=== PATIENT | male | born 1950 | race Caucasian/White ===

== ENCOUNTER 2016-12-29 12:17 | Inpatient (IN) | payer OTHER ==
[~2016-12-29] VITALS: Ht 182.9 cm; Wt 112.9 kg
[2016-12-29 13:04] LABS: HEMATOCRIT 39.9 % (38.0-50.0); MCH 31.8 PG (29.0-34.0); MCHC 31.6 G/DL (30.0-36.0); MEAN PLAT.VOLUME 9.7 uM^3 (9.0-12.4); NRBC (%) 2.3 /100 WBC (0-0); PLATELET COUNT 228 K/uL (156-360); RBC DIS.WIDTH-CV 21.9 % (11.8-14.6); RBC DIS.WIDTH-SD 73.7 % (39-53); RED BLOOD COUNT 3.96 M/uL (4.00-5.50); WHITE BLOOD COUNT 12.3 K/uL (4.1-10.2)
[2016-12-29 13:05] LABS: MCV 100.8 FL (86-99)
[2016-12-29 13:19] LABS: CHLORIDE 98 mEq/L (99-109); POTASSIUM 4.2 mEq/L (3.7-5.4); SODIUM 140 mEq/L (136-147)
[2016-12-29 13:20] LABS: GLUCOSE 125 mg/dL (70-99)
[2016-12-29 13:22] LABS: ANION GAP 13 MEQ/L (2-14)
[2016-12-29 13:24] LABS: GFR ESTIMATE (CALCULATED) 20 mL/min/
[2016-12-29 13:28] LABS: TROP-I INTERPRETATION NEGATIVE; TROPONIN-I 0.06 ng/mL (0.0-0.30)
[2016-12-29 13:33] LABS: UREA NITROGEN (BUN) 73 mg/dL (9-23)
[2016-12-29 17:18] LABS: BASE EXCESS 0 mEq/L (-3 to +3); CARBOXY HGB 4.8 % (0-5); METHEMOGLOBIN 0.8 % (0-1.5); PCO2 94 mm Hg (35-45); PO2 78 mm Hg (80-100)
[2016-12-29 17:19] LABS: COMMENTS - BLOOD GASES A+C+; DEVICE NC; O2 FLOW 5 L/MIN; SITE LR; pH 7.14 (7.35-7.45)
[2016-12-29] MEDS ORDERED: SPIRIVA1 INHALATI IH (17:29)
[2016-12-29] MEDS ORDERED: RENAL-VITE TAB0.8 MG PO (17:30)
[2016-12-29] MEDS ORDERED: BREO ELLIPTA I1 EACH IH (17:30)
[2016-12-29] MEDS ORDERED: FUROSEMIDE40 MG PO (17:31)
[2016-12-29] MEDS ORDERED: ASPIR-LOW81 MG PO (17:32)
[2016-12-29] MEDS ORDERED: CALCITRIOL0.25 MCG PO (17:32)
[2016-12-29] MEDS ORDERED: ERGOCALCIF50000 UNIT PO (17:33)
[2016-12-29] MEDS ORDERED: LOSARTAN POTASS50 MG PO (17:34)
[2016-12-29] MEDS ORDERED: DILTIAZEM 24HR120 MG PO (17:34)
[2016-12-29] MEDS ORDERED: XARELTO15 MG PO (17:37)
[2016-12-29 18:20] LABS: BASE EXCESS 0 mEq/L (-3 to +3); BICARBONATE 31.7 mEq/L (22-26); CARBOXY HGB 4.9 % (0-5); COMMENTS - BLOOD GASES A+C+; METHEMOGLOBIN 0.7 % (0-1.5); PCO2 91 mm Hg (35-45); PO2 84 mm Hg (80-100); SITE LR
[2016-12-29 18:21] LABS: DEVICE VENT VIA MASK; FI02 50 %; MODE SPON; PRES. SUPPORT 15 CM/H2O; TOTAL RESP RATE 20 resp/min
[2016-12-29 18:36] LABS: CONTINUOUS POS AIRWAY PRESSURE 5 cm H2O; pH 7.15 (7.35-7.45)
[2016-12-29 19:22] LABS: BASE EXCESS 1.9 mEq/L (-3 to +3); BICARBONATE 32.4 mEq/L (22-26); CARBOXY HGB 4.2 % (0-5); METHEMOGLOBIN 0.7 % (0-1.5); PO2 98 mm Hg (80-100)
[2016-12-29 19:23] LABS: PCO2 83 mm Hg (35-45)
[2016-12-29 19:24] LABS: COMMENTS - BLOOD GASES A+C+; CONTINUOUS POS AIRWAY PRESSURE 5 cm H2O; DEVICE VENT VIA MASK; FI02 50 %; MODE SPON; PRES. SUPPORT 20 CM/H2O; SITE LR; TOTAL RESP RATE 8 resp/min
[2016-12-29 21:15] VITALS: BP 183/103
[2016-12-29 21:30] VITALS: BP 170/103
[2016-12-29 21:38] LABS: MAGNESIUM 3.1 mg/dL (1.3-2.7)
[2016-12-29 21:41] LABS: TOTAL BILIRUBIN 0.4 mg/dL (0.0-1.0)
[2016-12-29 21:42] LABS: ALKALINE PHOSPHATASE 92 IU/L (3-129)
[2016-12-29 21:45] LABS: DIRECT BILIRUBIN 0.2 mg/dL (0.0-0.3)
[2016-12-29 22:00] VITALS: BP 112/70
[2016-12-29 22:26] LABS: BASE EXCESS 3.8 mEq/L (-3 to +3); BICARBONATE 29.2 mEq/L (22-26); CARBOXY HGB 3.1 % (0-5); DEVICE VENT; FI02 80 %; MECHANICAL RATE 16 resp/min; METHEMOGLOBIN 1.3 % (0-1.5); MODE A/C; PCO2 46 mm Hg (35-45); PEEP 5 CM/H20; PO2 286 mm Hg (80-100); SITE RR; TIDAL VOLUME 600 ML; TOTAL RESP RATE 16 resp/min; pH 7.41 (7.35-7.45)
[2016-12-29 22:27] VITALS: BP 112/70
[2016-12-29 22:55] LABS: METH RESISTANT S AUREUS PCR POSITIVE (NEGATIVE)
[2016-12-29 23:00] VITALS: BP 104/64
[2016-12-29 23:22] LABS: PROBE CHECK PASS
[2016-12-30] VITALS (24 sets, daily range): BP systolic 112–144; BP diastolic 58–82
[2016-12-30 05:33] LABS: HEMATOCRIT 37.1 % (38.0-50.0); MCH 32.4 PG (29.0-34.0); MCHC 32.9 G/DL (30.0-36.0); MCV 98.7 FL (86-99); NRBC (%) 1.6 /100 WBC (0-0); PLATELET COUNT 212 K/uL (156-360); RBC DIS.WIDTH-CV 21.9 % (11.8-14.6); RBC DIS.WIDTH-SD 72.2 % (39-53); RED BLOOD COUNT 3.76 M/uL (4.00-5.50)
[2016-12-30 05:49] LABS: TROP-I INTERPRETATION NEGATIVE; TROPONIN-I 0.12 ng/mL (0.0-0.30)
[2016-12-30 05:57] LABS: ANION GAP 9 MEQ/L (2-14); CHLORIDE 103 MEQ/L (99-109); GFR ESTIMATE (CALCULATED) 24 mL/min/; MAGNESIUM 2.8 mg/dl (1.3-2.7); POTASSIUM 4.1 MEQ/L (3.7-5.4); SAMPLE HEMOLYSIS CHECK 0; SAMPLE ICTERIC CHECK 0; SAMPLE LIPEMIA CHECK 0; SODIUM 142 MEQ/L (136-147); UREA NITROGEN (BUN) 62 mg/dL (9-23)
[2016-12-30 05:58] LABS: GLUCOSE 202 mg/dL (70-99)
[2016-12-30 12:16] LABS: POINT-OF-CARE METER ID UU14208751
[2016-12-30 12:57] LABS: TROP-I INTERPRETATION NEGATIVE; TROPONIN-I 0.07 ng/mL (0.0-0.30)
[2016-12-30 18:02] LABS: POINT-OF-CARE METER ID UU14208751
[2016-12-30 19:04] LABS: TROP-I INTERPRETATION NEGATIVE; TROPONIN-I 0.07 ng/mL (0.0-0.30)
[2016-12-30 23:22] LABS: POINT-OF-CARE METER ID UU14174217
[2016-12-31] VITALS (20 sets, daily range): BP systolic 103–156; BP diastolic 52–84
[2016-12-31 05:14] LABS: POINT-OF-CARE METER ID UU14162636
[2016-12-31 05:42] LABS: HEMATOCRIT 37.3 % (38.0-50.0); MCH 32.3 PG (29.0-34.0); MCHC 32.2 G/DL (30.0-36.0); MCV 100.5 FL (86-99); MEAN PLAT.VOLUME 10.3 uM^3 (9.0-12.4); NRBC (%) 0.6 /100 WBC (0-0); PLATELET COUNT 219 K/uL (156-360); RBC DIS.WIDTH-CV 22.5 % (11.8-14.6); RBC DIS.WIDTH-SD 76.3 % (39-53); RED BLOOD COUNT 3.71 M/uL (4.00-5.50); WHITE BLOOD COUNT 9.9 K/uL (4.1-10.2)
[2016-12-31 06:38] LABS: ANION GAP 9 MEQ/L (2-14); CHLORIDE 102 MEQ/L (99-109); GFR ESTIMATE (CALCULATED) 32 mL/min/; GLUCOSE 230 mg/dL (70-99); POTASSIUM 3.8 MEQ/L (3.7-5.4); SAMPLE HEMOLYSIS CHECK 0; SAMPLE ICTERIC CHECK 0; SAMPLE LIPEMIA CHECK 0; SODIUM 141 MEQ/L (136-147); UREA NITROGEN (BUN) 57 mg/dL (9-23)
[2016-12-31 12:36] LABS: POINT-OF-CARE METER ID UU14174217
[2016-12-31 18:20] LABS: POINT-OF-CARE METER ID UU13113731; POINT-OF-CARE USER ID AGYTJR
[2016-12-31 23:58] LABS: POINT-OF-CARE METER ID UU13113731
[2017-01-01] VITALS (7 sets, daily range): BP systolic 123–146; BP diastolic 67–84
[2017-01-01 05:39] LABS: HEMATOCRIT 42.3 % (38.0-50.0); MCH 31.1 PG (29.0-34.0); MCHC 30.3 G/DL (30.0-36.0); MCV 102.7 FL (86-99); MEAN PLAT.VOLUME 9.9 uM^3 (9.0-12.4); NRBC (%) 0.3 /100 WBC (0-0); PLATELET COUNT 241 K/uL (156-360); RBC DIS.WIDTH-CV 22.4 % (11.8-14.6); RBC DIS.WIDTH-SD 80.5 % (39-53); RED BLOOD COUNT 4.12 M/uL (4.00-5.50); WHITE BLOOD COUNT 13.4 K/uL (4.1-10.2)
[2017-01-01 06:21] LABS: POINT-OF-CARE METER ID UU14162636
[2017-01-01 06:37] LABS: ANION GAP 6 MEQ/L (2-14); CHLORIDE 103 MEQ/L (99-109); GFR ESTIMATE (CALCULATED) 34 mL/min/; GLUCOSE 196 mg/dL (70-99); MAGNESIUM 3.2 mg/dl (1.3-2.7); POTASSIUM 4.4 MEQ/L (3.7-5.4); SAMPLE HEMOLYSIS CHECK 0; SAMPLE ICTERIC CHECK 0; SAMPLE LIPEMIA CHECK 0; SODIUM 144 MEQ/L (136-147); UREA NITROGEN (BUN) 56 mg/dL (9-23)
[2017-01-01 12:33] LABS: POINT-OF-CARE METER ID UU14162636; POINT-OF-CARE USER ID 612031313
[2017-01-02 01:17] LABS: POINT-OF-CARE METER ID UU13113725
[2017-01-02 06:28] LABS: POINT-OF-CARE METER ID UU13113725
[2017-01-02 06:54] LABS: HEMATOCRIT 40.1 % (38.0-50.0); MCH 31.5 PG (29.0-34.0); MCHC 30.4 G/DL (30.0-36.0); MCV 103.6 FL (86-99); MEAN PLAT.VOLUME 9.6 uM^3 (9.0-12.4); NRBC (%) 0.2 /100 WBC (0-0); PLATELET COUNT 208 K/uL (156-360); RBC DIS.WIDTH-CV 21.8 % (11.8-14.6); RBC DIS.WIDTH-SD 81.1 % (39-53); RED BLOOD COUNT 3.87 M/uL (4.00-5.50); WHITE BLOOD COUNT 9.7 K/uL (4.1-10.2)
[2017-01-02 07:20] LABS: ANION GAP 6 MEQ/L (2-14); CHLORIDE 108 MEQ/L (99-109); GFR ESTIMATE (CALCULATED) 40 mL/min/; GLUCOSE 162 mg/dL (70-99); MAGNESIUM 2.9 mg/dl (1.3-2.7); POTASSIUM 5.1 MEQ/L (3.7-5.4); SAMPLE HEMOLYSIS CHECK 0; SAMPLE ICTERIC CHECK 0; SAMPLE LIPEMIA CHECK 0; SODIUM 148 MEQ/L (136-147); UREA NITROGEN (BUN) 57 mg/dL (9-23)
[2017-01-02 08:12] VITALS: BP 136/82
[2017-01-02 11:54] LABS: POINT-OF-CARE METER ID UU13113725
[2017-01-02 15:51] VITALS: BP 136/72
[2017-01-02 22:43] VITALS: BP 153/77
[2017-01-03 01:04] LABS: POINT-OF-CARE METER ID UU13113725
[2017-01-03 06:54] LABS: HEMATOCRIT 40.9 % (38.0-50.0); MCH 31.3 PG (29.0-34.0); MCHC 30.1 G/DL (30.0-36.0); MCV 104.1 FL (86-99); MEAN PLAT.VOLUME 10.1 uM^3 (9.0-12.4); PLATELET COUNT 189 K/uL (156-360); RBC DIS.WIDTH-CV 21.1 % (11.8-14.6); RBC DIS.WIDTH-SD 80.5 % (39-53); RED BLOOD COUNT 3.93 M/uL (4.00-5.50); WHITE BLOOD COUNT 9.3 K/uL (4.1-10.2)
[2017-01-03 06:55] VITALS: BP 156/73
[2017-01-03 07:47] LABS: ANION GAP 6 MEQ/L (2-14); CHLORIDE 107 MEQ/L (99-109); GFR ESTIMATE (CALCULATED) 38 mL/min/; GLUCOSE 166 mg/dL (70-99); MAGNESIUM 2.6 mg/dl (1.3-2.7); POTASSIUM 5.3 MEQ/L (3.7-5.4); SAMPLE HEMOLYSIS CHECK 0; SAMPLE ICTERIC CHECK 0; SAMPLE LIPEMIA CHECK 0; SODIUM 148 MEQ/L (136-147); UREA NITROGEN (BUN) 52 mg/dL (9-23)
[2017-01-03 11:56] LABS: POINT-OF-CARE METER ID UU13113725
[2017-01-03 15:05] VITALS: BP 148/66
[2017-01-03 16:24] LABS: POINT-OF-CARE METER ID UU13113725
[2017-01-03 22:30] LABS: POINT-OF-CARE METER ID UU13113725
[2017-01-04 00:08] VITALS: BP 130/70
[2017-01-04 05:58] LABS: POINT-OF-CARE METER ID UU13113725
[2017-01-04 06:29] LABS: HEMATOCRIT 39.9 % (38.0-50.0); MCH 31.7 PG (29.0-34.0); MCHC 30.6 G/DL (30.0-36.0); MCV 103.6 FL (86-99); MEAN PLAT.VOLUME 9.7 uM^3 (9.0-12.4); PLATELET COUNT 186 K/uL (156-360); RBC DIS.WIDTH-CV 20.5 % (11.8-14.6); RED BLOOD COUNT 3.85 M/uL (4.00-5.50); WHITE BLOOD COUNT 9.5 K/uL (4.1-10.2)
[2017-01-04 07:03] VITALS: BP 141/79
[2017-01-04 07:03] LABS: ANION GAP 4 MEQ/L (2-14); CHLORIDE 107 MEQ/L (99-109); GFR ESTIMATE (CALCULATED) 40 mL/min/; MAGNESIUM 2.4 mg/dl (1.3-2.7); SAMPLE HEMOLYSIS CHECK 0; SAMPLE ICTERIC CHECK 0; SAMPLE LIPEMIA CHECK 0; SODIUM 148 MEQ/L (136-147); UREA NITROGEN (BUN) 48 mg/dL (9-23)
[2017-01-04 07:04] LABS: GLUCOSE 111 mg/dL (70-99)
[2017-01-04] MEDS ORDERED: BUMETANIDE1 MG PO (12:57)
[2017-01-04] MEDS ORDERED: PREDNISONE20 MG PO (12:57)
== END 2017-01-04 16:50 | disposition home health service (06) | DRG 208 ==
LOC: EME 12:17 → 4WEST 15:55 → EDOF 15:55 → 5EAST 15:55 → CANRESERV 16:16 → ENRESERV 16:16 → 4WEST 19:46 → ENRESERV 19:54 → 4WEST 21:05 → ENRESERV 01-01 12:26 → 5EAST 01-01 15:09 → ENPENDDIS 01-04 → 5EAST 01-04 16:50
PROVIDERS: Emergency Medicine; Internal Medicine
DX: J44.0 Chronic obstructive pulmonary disease with (acute) lower respiratory infection (principal); J18.9 Pneumonia, unspecified organism; J44.1 Chronic obstructive pulmonary disease with (acute) exacerbation; J96.02 Acute respiratory failure with hypercapnia; N17.9 Acute kidney failure, unspecified; J96.01 Acute respiratory failure with hypoxia; I50.32 Chronic diastolic (congestive) heart failure; I48.0 Paroxysmal atrial fibrillation; N18.3 Chronic kidney disease, stage 3 (moderate); I13.0 Hypertensive heart and chronic kidney disease with heart failure and stage 1 through stage 4 chronic kidney disease, or unspecified chronic kidney disease; E87.2 Acidosis; F17.200 Nicotine dependence, unspecified, uncomplicated; Z68.35 Body mass index [BMI] 35.0-35.9, adult; E66.9 Obesity, unspecified; T17.990A Other foreign object in respiratory tract, part unspecified in causing asphyxiation, initial encounter; E66.01 Morbid (severe) obesity due to excess calories; Z99.81 Dependence on supplemental oxygen; Z90.2 Acquired absence of lung [part of]; Z85.118 Personal history of other malignant neoplasm of bronchus and lung; Z75.1 Person awaiting admission to adequate facility elsewhere; J98.11 Atelectasis
CPT/HCPCS: 36600; 71010; 80048; 80076; 82306; 82803; 82948; 83735; 83880; 84100; 84484; 85027; 87040; 87070; 87205; 87641; 93005; 94002; 94003; 94640; 94640 76; 94799; 97530 GP; 99202; 99281; 99285; J0456; J0696; J1644; J1815; J2060; J2704; J2920; J2930; J7030; J7050; J7512; S0028